=== PATIENT | male | born 1965 | race Two or more races ===

== ENCOUNTER 2019-04-16 23:29 | Emergency (ER) | payer MEDICAID ==
[~2019-04-16] VITALS: Ht 198.1 cm; Wt 86.2 kg
[2019-04-17] MEDS ORDERED: LORAZEPAM 0.5 MG TABLET ONE (01:07)
[2019-04-17 01:12] VITALS: BP 118/83
[2019-04-17] MEDS: LORAZEPAM 1 MG TABLET PO ONE (01:12)
== END 2019-04-17 02:00 | disposition home or self-care (01) ==
LOC: ER 23:32
DX: F10.239 Alcohol dependence with withdrawal, unspecified (principal); F41.9 Anxiety disorder, unspecified; Y90.9 Presence of alcohol in blood, level not specified